=== PATIENT | female | born 1960 | race Caucasian/White ===

== ENCOUNTER 2017-09-07 09:54 | Emergency (ER) | payer OTHER ==
[~2017-09-07] VITALS: Ht 170.2 cm; Wt 142.0 kg
--- NOTE | ~2017-09-07 | EKG ---
[address] [address] ELECTROCARDIOGRAM REPORT Name: UMER HERNÁNDEZ Room #: [facility]#: [id number] Admission: 09/07/17 Attend Phys: Discharge: 09/07/17 Date of : 56 Report #: [id number] THIS REPORT FOR: //name// [facility] ED Test Date: 2017-09-07 Test Time: 10:30:45 Pat Name: UMER HERNÁNDEZ Department: Room: Gender: F Stem Threshing Machine Operator: Mare ANAYA RN : 1960 Requested By: Amelie Salinas Order Number: [id number] MD: Enmanuel Jules Measurements Intervals [place] Rate: 47 P: 2 DC: 175 QRS: 86 QRSD: 97 T: 61 QT: 437 QTc: 387 Interpretive Statements Sinus bradycardia Low voltage, extremity and precordial leads Baseline wander in lead(s) V4 No previous ECG available for comparison Electronically Signed On 09-08-2017 8:38:15 BOAT WORKER by Enmanuel Jules [email or web address] <ELECTRONICALLY SIGNED> By: Enmanuel Jules MD 09/08/17 0838 Enmanuel Jules MD /OLYA
[~2017-09-07 09:54] MED LIST: CENTRUM SILVER1 EAC3 PO; COLACE100 MG PO; FISH OIL 1,0001 EAC8 PO; IBUPROFEN 600600 M1 PO; LEVAQUIN 750 M750 MG PO; NOHOMEMEDICATIONS; OXYCODONE HCL 55 MG PO; SENNA PO
[2017-09-07 10:27] LABS: URINE BILIRUBIN NEGATIVE (Negative); URINE BLOOD NEGATIVE (Negative); URINE CLARITY CLEAR; URINE COLOR YELLOW; URINE GLUCOSE-RANDOM* TRACE (Negative); URINE KETONES NEGATIVE (Negative); URINE NITRITE-REFLEX NEGATIVE (Negative); URINE PROTEIN (DIPSTICK) NEGATIVE (Negative); URINE SPECIFIC GRAVITY >= 1.030 (1.005-1.035); URINE UROBILINOGEN 0.2 E.U./dl (0.2-1.0)
[2017-09-07 10:29] LABS: URINE LEUKOCYTES-REFLEX TRACE (Negative)
[2017-09-07 10:42] LABS: ABSOLUTE NEUTROPHILS 4.2 thou/uL (1.4-8.2); BASOPHILS 1.2 % (0.0-2.0); HEMATOCRIT 47.8 % (37.0-47.0); HEMOGLOBIN 16.2 gm/dL (12.0-15.0); LYMPHOCYTES 39.1 % (24.0-44.0); MCH 31.6 pg (26.0-34.0); MONOCYTES 6.9 % (1.0-8.0); POLYS 49.8 % (36.0-66.0); RBC 5.13 mil/uL (4.20-5.00); RDW 13.2 % (10.5-14.5); WBC 8.4 thou/uL (4.0-11.0)
[2017-09-07] MEDS ORDERED: TRULICITY0.75 MG/0. SUBQ (10:50)
[2017-09-07 10:51] LABS: CALCIUM 9.9 mg/dL (8.5-10.1); POTASSIUM 4.2 mmol/L (3.5-5.1)
[2017-09-07 10:57] LABS: ALBUMIN 3.6 g/dL (3.4-5.0); DIRECT BILIRUBIN 0.1 mg/dL (<0.1-0.3); TOTAL BILIRUBIN 0.3 mg/dL (<0.1-1.0); TOTAL PROTEIN 7.8 g/dL (6.4-8.2)
[2017-09-07 11:24] LABS: PLATELET COUNT 245 thou/uL (150-400); PLATELET ESTIMATE NORMAL
[2017-09-07 13:38] LABS: CASTS None Seen /LPF (None Seen); SQUAMOUS 0-3 Few /LPF (0-3); URINE RBC None Seen /HPF (0-2); URINE WBC 0-5 Rare /HPF (0-5)
[2017-09-07] MEDS ORDERED: KEFLEX500 M1 PO (14:07)
[2017-09-07 14:43] VITALS: BP 159/78
== END 2017-09-07 14:44 | disposition home or self-care (01) ==
LOC: ER 09:54
PROVIDERS: Emergency Medicine
DX: N39.0 Urinary tract infection, site not specified (principal)

== ENCOUNTER 2017-09-10 14:12 | Emergency (ER) | payer OTHER ==
[~2017-09-10] VITALS: Ht 170.2 cm; Wt 142.0 kg
[~2017-09-10 14:12] MED LIST changes: +KEFLEX500 M1 PO; +TRULICITY0.75 MG/0. SUBQ
[2017-09-10] MEDS ORDERED: CYCLOBENZAPRINE5 MG PO (15:00)
[2017-09-10] MEDS ORDERED: HYDROCODONE-AP1 EAC6 PO (15:00)
[2017-09-10] MEDS ORDERED: PREDNISONE 20 M20 MG PO (15:00)
[2017-09-10 15:39] VITALS: BP 123/55
== END 2017-09-10 15:10 | disposition home or self-care (01) ==
LOC: ER 14:12
DX: M54.32 Sciatica, left side (principal); Z90.49 Acquired absence of other specified parts of digestive tract

== ENCOUNTER 2017-09-15 18:08 | Inpatient (IN) | payer OTHER ==
[~2017-09-15] VITALS: Ht 170.2 cm; Wt 142.9 kg
--- NOTE | ~2017-09-15 | EKG ---
[address] [place] [address] ELECTROCARDIOGRAM REPORT Name: UMER HERNÁNDEZ Room #: 434-P ADM IN M.R.#: [id number] Admission: 09/15/17 Attend Phys: Adriano Coel MD Discharge: Date of : 56 Report #: [id number] THIS REPORT FOR: //name// [facility] Test Date: 2017-09-16 Test Time: 06:52:08 Pat Name: UMER HERNÁNDEZ Department: Room: 434 P Gender: F Foil Wrapper: PORFIRIO : 1960 Requested By: Shayy De La Rosa Order Number: [id number] MD: Julito Staples Measurements Intervals [place] Rate: 42 P: 50 [place]: 164 QRS: 106 QRSD: 100 T: 27 QT: 494 QTc: 413 Interpretive Statements Sinus bradycardia Left posterior fascicular block Low voltage, extremity and precordial leads Poor R wave progression Compared to ECG 09/07/2017 10:30:45 No significant change was found Electronically Signed On 09-16-2017 8:27:15 NON ACOUSTIC OPERATOR by Julito Staples [email or web address] <ELECTRONICALLY SIGNED> By: Julito Staples MD, [facility] 09/16/17 0827 [id number] Julito Staples MD, [facility] /EPI
[~2017-09-15 18:08] MED LIST changes: +CYCLOBENZAPRINE5 MG PO; +HYDROCODONE-AP1 EAC6 PO; +PREDNISONE 20 M20 MG PO
[2017-09-15 19:25] LABS: ABSOLUTE NEUTROPHILS 9.7 thou/uL (1.4-8.2); BASOPHILS 0.3 % (0.0-2.0); EOSINOPHILS 0.2 % (0.0-3.0); HEMATOCRIT 46.2 % (37.0-47.0); HEMOGLOBIN 15.6 gm/dL (12.0-15.0); LYMPHOCYTES 16.2 % (24.0-44.0); MCH 31.2 pg (26.0-34.0); MCHC 33.8 g/dL (28.0-37.0); MCV 92.4 fL (80.0-100.0); MONOCYTES 5.4 % (1.0-8.0); PLATELET COUNT 233 thou/uL (150-400); POLYS 77.9 % (36.0-66.0); RDW 13.6 % (10.5-14.5); WBC 12.4 thou/uL (4.0-11.0)
[2017-09-15 19:28] LABS: CALCIUM 9.3 mg/dL (8.5-10.1); POTASSIUM 4.5 mmol/L (3.5-5.1)
[2017-09-15 19:56] LABS: URINE BILIRUBIN NEGATIVE (Negative); URINE BLOOD NEGATIVE (Negative); URINE CLARITY CLEAR; URINE COLOR YELLOW; URINE GLUCOSE-RANDOM* NEGATIVE (Negative); URINE KETONES NEGATIVE (Negative); URINE LEUKOCYTES-REFLEX TRACE (Negative); URINE NITRITE-REFLEX NEGATIVE (Negative); URINE PROTEIN (DIPSTICK) NEGATIVE (Negative); URINE SPECIFIC GRAVITY >= 1.030 (1.005-1.035); URINE UROBILINOGEN 0.2 E.U./dl (0.2-1.0)
[2017-09-15 20:08] LABS: LARGE PLATELETS RARE
[2017-09-15 20:35] VITALS: BP 128/60
[2017-09-15 21:08] VITALS: BP 126/66
[2017-09-15 21:35] VITALS: BP 123/72
[2017-09-16 04:55] VITALS: BP 125/62
[2017-09-16 05:17] LABS: HEMATOCRIT 44.4 % (37.0-47.0); HEMOGLOBIN 14.8 gm/dL (12.0-15.0); MCH 31.3 pg (26.0-34.0); MCHC 33.3 g/dL (28.0-37.0); MCV 94.1 fL (80.0-100.0); RBC 4.72 mil/uL (4.20-5.00); RDW 13.6 % (10.5-14.5); WBC 10.4 thou/uL (4.0-11.0)
[2017-09-16 05:20] LABS: CALCIUM 8.7 mg/dL (8.5-10.1); CREATININE 0.9 mg/dL (0.6-1.0); POTASSIUM 4.2 mmol/L (3.5-5.1)
[2017-09-16 07:18] VITALS: BP 115/60
[2017-09-16 15:38] VITALS: BP 122/53
[2017-09-16 19:25] VITALS: BP 154/55
[2017-09-17 04:44] VITALS: BP 132/64
[2017-09-17 07:05] VITALS: BP 148/82
[2017-09-17] MEDS ORDERED: HYDROCODONE-AP1 EAC6 PO (09:45)
[2017-09-17] MEDS ORDERED: NAPROXEN250 MG PO (09:45)
[2017-09-17 10:23] VITALS: BP 148/82
== END 2017-09-17 11:29 | disposition home or self-care (01) | DRG 552 ==
LOC: ER 18:08 → 4S 20:17 → EROBS 20:17 → 4S 21:07 → ENTRNSPT 09-17 11:17 → EDTRNSPTSTS 09-17 11:20 → 4S 09-17 11:29
PROVIDERS: Emergency Medicine; Nurse Practitioner Family
DX: M54.32 Sciatica, left side (principal); Z68.42 Body mass index [BMI] 45.0-49.9, adult; G47.33 Obstructive sleep apnea (adult) (pediatric); D72.829 Elevated white blood cell count, unspecified; E66.9 Obesity, unspecified; R00.1 Bradycardia, unspecified; Z77.22 Contact with and (suspected) exposure to environmental tobacco smoke (acute) (chronic); Z90.49 Acquired absence of other specified parts of digestive tract; Z87.440 Personal history of urinary (tract) infections; Z79.899 Other long term (current) drug therapy
CPT/HCPCS: 10195

== ENCOUNTER 2019-02-02 15:08 | Emergency (ER) | payer OTHER ==
[~2019-02-02] VITALS: Ht 170.2 cm; Wt 142.9 kg
[~2019-02-02 15:08] MED LIST changes: +NAPROXEN250 MG PO
[2019-02-02 16:12] LABS: ABSOLUTE NEUTROPHILS 5.4 thou/uL (1.4-8.2); BASOPHILS 0.8 % (0.0-2.0); EOSINOPHILS 1.5 % (0.0-3.0); HEMOGLOBIN 16.2 gm/dL (12.0-15.0); MCH 31.1 pg (26.0-34.0); MCHC 33.7 g/dL (28.0-37.0); MCV 92.2 fL (80.0-100.0); MONOCYTES 6.8 % (1.0-8.0); PLATELET COUNT 220 thou/uL (150-400); POLYS 65.9 % (36.0-66.0); RDW 13.2 % (10.5-14.5); WBC 8.2 thou/uL (4.0-11.0)
[2019-02-02 16:19] LABS: CALCIUM 9.6 mg/dL (8.5-10.1); CREATININE 0.9 mg/dL (0.6-1.0); POTASSIUM 3.9 mmol/L (3.5-5.1)
[2019-02-02 16:26] LABS: ALBUMIN 3.4 g/dL (3.4-5.0); TOTAL BILIRUBIN 3.2 mg/dL (<0.1-1.0)
[2019-02-02 17:46] LABS: URINE BILIRUBIN 3+ (Negative); URINE BLOOD 3+ (Negative); URINE CLARITY CLEAR; URINE COLOR ORANGE; URINE GLUCOSE-RANDOM* 1+ (Negative); URINE KETONES NEGATIVE (Negative); URINE LEUKOCYTES-REFLEX TRACE (Negative); URINE PROTEIN (DIPSTICK) TRACE (Negative); URINE SPECIFIC GRAVITY >= 1.030 (1.005-1.035)
[2019-02-02 17:51] LABS: ICTOTEST (BILI CONFIRMATORY) Positive (Negative); URINE NITRITE-REFLEX POSITIVE (Negative)
[2019-02-02 17:58] LABS: BACTERIA-REFLEX 1-9 Few /HPF (None Seen); CALCIUM OXALATE 4-10 Moderate /LPF (None Seen); CASTS None Seen /LPF (None Seen); SQUAMOUS 0-3 Few /LPF (0-3); URINE RBC 3-10 Few /HPF (0-2); URINE WBC-REFLEX 0-5 Rare /HPF (0-5)
[2019-02-02] MEDS ORDERED: FLOMAX0.4 MG PO (18:40)
[2019-02-02] MEDS ORDERED: NORCO 10-325 T1 EACH PO (18:40)
[2019-02-02 19:19] VITALS: BP 174/83
== END 2019-02-02 23:49 | disposition home or self-care (01) ==
LOC: ER 15:08
PROVIDERS: Physician Assistant
DX: N20.1 Calculus of ureter (principal); G47.33 Obstructive sleep apnea (adult) (pediatric); E66.9 Obesity, unspecified; Z68.42 Body mass index [BMI] 45.0-49.9, adult; Z90.49 Acquired absence of other specified parts of digestive tract; Z98.890 Other specified postprocedural states; Z87.440 Personal history of urinary (tract) infections

== ENCOUNTER 2019-02-19 00:27 | Inpatient (IN) | payer OTHER ==
[~2019-02-19] VITALS: Ht 170.2 cm; Wt 142.9 kg
[~2019-02-19 00:27] MED LIST changes: +FLOMAX0.4 MG PO; +NORCO 10-325 T1 EACH PO
[2019-02-19 00:29] VITALS: BP 189/61
[2019-02-19 00:53] LABS: ABSOLUTE NEUTROPHILS 12.7 thou/uL (1.4-8.2); BASOPHILS 0.2 % (0.0-2.0); EOSINOPHILS 0.7 % (0.0-3.0); HEMATOCRIT 48.7 % (37.0-47.0); HEMOGLOBIN 16.1 gm/dL (12.0-15.0); LYMPHOCYTES 10.8 % (24.0-44.0); MCV 94.2 fL (80.0-100.0); MONOCYTES 3.7 % (1.0-8.0); PLATELET COUNT 196 thou/uL (150-400); POLYS 84.6 % (36.0-66.0); RBC 5.18 mil/uL (4.20-5.00); RDW 13.7 % (10.5-14.5); WBC 16.8 thou/uL (4.0-11.0)
[2019-02-19] MEDS ORDERED: AMBIEN 5 MG TABL5 M1 PO (00:55)
[2019-02-19] MEDS ORDERED: COLACE100 MG PO (00:56)
[2019-02-19] MEDS ORDERED: PHENTERMINE H37.5 MG PO (00:57)
[2019-02-19] MEDS ORDERED: LOVASTATIN 20 M20 MG PO (00:58)
[2019-02-19] MEDS ORDERED: INVOKANA300 MG PO (00:58)
[2019-02-19] MEDS ORDERED: NUVIGIL250 MG PO (00:59)
[2019-02-19 01:05] LABS: CALCIUM 9.1 mg/dL (8.5-10.1); POTASSIUM 4.2 mmol/L (3.5-5.1)
[2019-02-19 01:11] LABS: ALBUMIN 3.5 g/dL (3.4-5.0); TOTAL BILIRUBIN 4.6 mg/dL (<0.1-1.0); TOTAL PROTEIN 8.1 g/dL (6.4-8.2)
[2019-02-19 01:44] LABS: URINE BILIRUBIN 1+ (Negative); URINE BLOOD NEGATIVE (Negative); URINE CLARITY SL CLOUDY; URINE COLOR YELLOW; URINE GLUCOSE-RANDOM* 3+ (Negative); URINE KETONES NEGATIVE (Negative); URINE LEUKOCYTES-REFLEX NEGATIVE (Negative); URINE NITRITE-REFLEX NEGATIVE (Negative); URINE PROTEIN (DIPSTICK) NEGATIVE (Negative); URINE UROBILINOGEN 0.2 E.U./dl (0.2-1.0)
[2019-02-19 05:41] VITALS: BP 115/44
[2019-02-19 05:42] VITALS: BP 115/44
--- NOTE | 2019-02-19 06:18 | NUR ---
JOHNATHAN ZUNIGA FROM ED 0600. CONSENTS SIGNED. VITAL SIGNS TAKEN, ADMISSION EDUCATION PROVIDED. RT CONTACTED TO SET UP HOME CPAP. FLUIDS RUINNING, ADMISSION TO BE COMPLETED BY AM STAFF. WILL CONTINUE POC.
[2019-02-19 06:20] VITALS: BP 144/43
--- NOTE | 2019-02-19 09:19 | NUR ---
PATIENT CARE WAS ASSUMED AT 0715.PATIENT IS ALERT AND ORIETNED X4.PATIENT HAS NO COMPLAINS OF PAIN AT THIS TIME.IV IS INFUSING FLUIDS.PT HAS BIPAP IN PLACE.PT IS NOT ON FALL PRECAUTIONS.CALL LIGHT,PHONE, AND PERSONAL BELONGINGS ARE WITHIN REACH.
--- NOTE | 2019-02-19 14:28 | NUR ---
ASSESSMENT-PT LIVES AT HOME WITH HER . PRIOR TO COMING IN SHE WAS INDEPENDENT OF ADLS AND AMBULATION. PT WAS WORKING AND DRIVING PRIOR. DISCUSSED THIS AM THAT WE WOULD BE WORKING ON TRYING TO TRANSFER HER TO DUE TO HER HAVING HER ORIGINAL PROCEDURE THERE AND DRS DESIRE TO HAVE HER TRANSFERRED. S/W ALFREDO SENIOR COMMERCIAL LOAN OFFICER AND HE SAYS THAT THE MEDICAL DRS ARE AT CAPACITY NOW AND THEY ARE ONLY ACCEPTING URGENT TRANSFERS OR PT'S THAT CAN COME FROM PROCEDURES AND RETURN BACK. DISCUSSED WITH CASE MGT DIRECTOR AND DR KING. DR KING DESIRES A DR TO CALL. Keyshawn/W ALFREDO AGAIN AND EXPLAINED THIS TO HIM AND ALFREDO SAYS HE WILL CALL DR KING. RECEIVED A CALL TO FAX FACE SHEET, H&P, CONSULTS, LABS AND IMAGING STUDIES TO [phone] AND THIS WAS DONE. ALSO CALLED RADIOLOGY AND ASKED THEM TO CLOUD OVER ALL RADIOLOGY REPORTS FROM THIS YEAR TO .
[2019-02-19 15:58] VITALS: BP 116/58
--- NOTE | 2019-02-19 16:51 | NUR ---
received word back from keesha at and from dr víctor moralez is willing to do procedure on pt byt t this time cannot accept in transfer. PT IS TO BE NPO AFTER MN, KEEP IV ABX & FLUIDS INFUSING AND BE AT GI LAB AT 1430 TOMORROW FOR 1600 CASE. PT AND RN AWARE OF THE ABOVE ALSO.
[2019-02-19 19:56] VITALS: BP 109/52
--- NOTE | 2019-02-20 03:16 | NUR ---
PATIENT ALERT AND ORIENTED X4. UP AD LUCITA. DENIES PAIN. WEARS BIPAP AT HS. SLEPT MOST OF NIGHT.
[2019-02-20 05:28] VITALS: BP 128/62
[2019-02-20 06:04] LABS: BASOPHILS 1.4 % (0.0-2.0); EOSINOPHILS 5.5 % (0.0-3.0); HEMATOCRIT 43.4 % (37.0-47.0); HEMOGLOBIN 14.7 gm/dL (12.0-15.0); LYMPHOCYTES 35.9 % (24.0-44.0); MCH 31.6 pg (26.0-34.0); MCHC 33.8 g/dL (28.0-37.0); MCV 93.4 fL (80.0-100.0); MONOCYTES 6.7 % (1.0-8.0); PLATELET COUNT 193 thou/uL (150-400); POLYS 50.5 % (36.0-66.0); RBC 4.65 mil/uL (4.20-5.00); RDW 13.7 % (10.5-14.5); WBC 5.9 thou/uL (4.0-11.0)
[2019-02-20 06:21] LABS: ALBUMIN 2.9 g/dL (3.4-5.0); CALCIUM 9.1 mg/dL (8.5-10.1); CREATININE 1.1 mg/dL (0.6-1.0); MAGNESIUM 2.1 mg/dL (1.8-2.4); POTASSIUM 4.2 mmol/L (3.5-5.1); TOTAL BILIRUBIN 1.8 mg/dL (<0.1-1.0); TOTAL PROTEIN 7.1 g/dL (6.4-8.2)
[2019-02-20 07:25] VITALS: BP 141/58
--- NOTE | 2019-02-20 10:43 | NUR ---
PATIENT CARE WAS ASSUMED AT 0715.PATIENT IS ALERT AND ORIENTED X4.IV IS INFUSING FLUIDS.PATIENT HAS NO COMPLAINS OF PAIN AT THIS TIME.PT IS ABLE TO AMBULATE ON HER OWN. NO FALL RISK.HEART RATE HAS BEEN RUNNING LOW.LOW 40'S AND MID 40'S.DOCTOR WAS NOTIFIED.STATED HE WILL MONITOR PATIENT CLOSELY.PT IS NOT SYMPTOMATIC,PT STATES SHE FEELS GOOD AND IS SITTING UP IN CHAIR.PT IS STILL NPO SINCE MIDNIGHT, AND IS CURRENTLY WAITING FOR TRANSFER TO [facility].
--- NOTE | 2019-02-20 13:45 | NUR ---
TRANSPORTATION PICKED UP PATIENT TO GO TO [facility] FOR PROCEDURE.PATIENT VALADEZ IV INTACT.TRANSPORTATION HAS PAPERWORK AND PATIENT WILL BE TRAVELING VIA W/C VAN.PATIENT HAS HER PERSONAL BELONGINGS.PATIENT WILL BE BROUGHT BACK TO [facility] TO THE 3W MED/[facility] TELEM UNIT, THIS EVENING.
--- NOTE | 2019-02-20 14:20 | NUR ---
Nutrition: Pt w/ BMI >40; wt appears stable from admit about 18 months ago. Pt currently at for procedure, [facility] unable to accept transfer. Albumin 2.9, was WNL initially. BG controlled. SSI and other meds reviewed. Pt has been NPO for her procedure this afternoon, no prior records. 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 Physician also noted pt report of working on lifestyle changes in r/t obesity. Assess at low nutrition risk at this time; RD available by consult if needed.
--- NOTE | 2019-02-20 14:27 | NUR ---
S/W ALFREDO AT AND CONFIRMED ARRANGEMENTS FOR PT TO BE AT GI LAB THERE AND DIRECTIONS GIVEN TO PT TO INFORM HER WHERE TO COME AT . PT INFORMED THAT THERE HAVE BEEN A COUPLE OF CASES ADDED ON AHEAD OF HERS BUT STILL WANTS HER AT THE SAME TIME. CHART COPY SENT WITH PT AND PT HAS ELECTED TO TAKE HER BELONGINGS WITH HER IN CASE THERE ARE COMPLICATIONS AND SHE WOULD HAVE TO STAY. ALFREDO FROM INFORMED OF THIS. ALFREDO [phone]. [facility] PT WILL PROBABLY NEED TO RETURN AROUND 8-9PM [facility].
[2019-02-20 21:07] VITALS: BP 163/74
[2019-02-21 03:34] VITALS: BP 131/96
--- NOTE | 2019-02-21 05:46 | NUR ---
PATIENT RETURNED FROM AROUND 2100 IN A W/C ACCOMPANIED BY TRANSPORTATION. PATIENT IS ALERT AND ORIENTED X4. DENIES PAIN EXCEPT FOR A SORE THROAT. UP AD LUCITA. SLEPT MOST OF NIGHT.
[2019-02-21 07:24] VITALS: BP 105/50
--- NOTE | 2019-02-21 11:06 | EKG ---
[address] [address] ELECTROCARDIOGRAM REPORT Name: UMER HERNÁNDEZ Room #: 355-P ADM IN M.R.#: [id number] ������������������ Admission: 02/19/19 ������������������ Attend Phys: Vikram Ramos MD Discharge: ������������������ Date of : 56 Report #: [id number] ����������������������������������������������������������������� [id number] THIS REPORT FOR: //name// [facility] Test Date: 2019-02-20 Test Time: 12:02:26 Pat Name: UMER HERNÁNDEZ Department: Room: [facility] Gender: F Senior Sales Representative: Geri DIALLO : 1960 Requested By: Vikram Ramos Order Number: [id number] MD: Julito Staples Measurements Intervals [place] Rate: 45 P: -3 MD: 165 QRS: 88 QRSD: 98 T: 40 QT: 472 QTc: 409 Interpretive Statements Sinus bradycardia Poor R wave progression Compared to ECG 09/16/2017 06:52:08 No significant change was found Electronically Signed On 02-21-2019 11:06:27 CDT by Julito Staples [email or web address] ��������������������������������������������� <ELECTRONICALLY SIGNED> ���������������������������������������� By: Julito Staples MD, [facility] ��������������������������������������������� 02/21/19 1106 1202 120 Julito Staples MD, [facility] /EPI
[2019-02-21 12:08] LABS: HEMATOCRIT 45.1 % (37.0-47.0); HEMOGLOBIN 15.5 gm/dL (12.0-15.0); MCH 31.7 pg (26.0-34.0); MCHC 34.3 g/dL (28.0-37.0); MCV 92.3 fL (80.0-100.0); RBC 4.88 mil/uL (4.20-5.00); RDW 13.6 % (10.5-14.5); WBC 8.6 thou/uL (4.0-11.0)
[2019-02-21 12:20] LABS: ALBUMIN 3.2 g/dL (3.4-5.0); CALCIUM 9.3 mg/dL (8.5-10.1); CREATININE 1.1 mg/dL (0.6-1.0); POTASSIUM 3.9 mmol/L (3.5-5.1); TOTAL BILIRUBIN 0.7 mg/dL (<0.1-1.0); TOTAL PROTEIN 7.8 g/dL (6.4-8.2)
--- NOTE | 2019-02-21 16:56 | NUR ---
ASSUMED PATIENT CARE AT 0700. A/O X4 UP AD LUCITA. DENIES PAIN, NO N/V. PROGRESSING TOWARDS POC GOLAS.
[2019-02-21 19:05] VITALS: BP 117/54
[2019-02-22 03:07] VITALS: BP 131/63
[2019-02-22 06:01] LABS: ABSOLUTE NEUTROPHILS 3.4 thou/uL (1.4-8.2); BASOPHILS 1.3 % (0.0-2.0); HEMOGLOBIN 14.5 gm/dL (12.0-15.0); MCH 31.3 pg (26.0-34.0); MCHC 33.7 g/dL (28.0-37.0); MCV 92.8 fL (80.0-100.0); MONOCYTES 6.4 % (1.0-8.0); PLATELET COUNT 182 thou/uL (150-400); POLYS 51.3 % (36.0-66.0); RBC 4.63 mil/uL (4.20-5.00); RDW 13.6 % (10.5-14.5); WBC 6.6 thou/uL (4.0-11.0)
--- NOTE | 2019-02-22 06:42 | NUR ---
SLEPT PART OF SHIFT. UP AD LUCITA IN ROOM WITHOUT COMPLAINTS OF PAIN. MAINTAIN SAFE ENVIRONMENT. WORKING ON GOALS AND PLAN OF CARE FOR NOC. PROGRESSING SLOWLY TOWARDS DISCHARGE GOALS. LAB MISSED LAB DRAW X2 AND PATIENT UPSET. SECOND LAB PERSON CAME AND GOT BLOOD. PATIENT RESTING WITH CPAP ON. CONTINUE TO ASSES.
[2019-02-22 08:00] VITALS: BP 127/64
[2019-02-22 16:07] VITALS: BP 157/68
--- NOTE | 2019-02-22 17:40 | NUR ---
ASSUMED PATIENT CARE AT 0700. NO PAIN, NO N/V. VSS. PROGRESSING TOWARDS POC GOALS.
[2019-02-22 19:49] VITALS: BP 145/64
[2019-02-23 04:00] VITALS: BP 120/55
[2019-02-23 06:00] LABS: ALBUMIN 2.7 g/dL (3.4-5.0); CALCIUM 9.2 mg/dL (8.5-10.1); POTASSIUM 4.1 mmol/L (3.5-5.1); TOTAL BILIRUBIN 0.6 mg/dL (<0.1-1.0); TOTAL PROTEIN 6.3 g/dL (6.4-8.2)
[2019-02-23 07:36] VITALS: BP 148/82
--- NOTE | 2019-02-23 07:36 | NUR ---
Pt. has slept well during the night with her BIPAP on. Denies any pain or discomfort. Up ad vikas in room with steady gait. Afebrile. Making progress towards care plan goals.
--- NOTE | 2019-02-23 09:23 | NUR ---
ORDERS RECEIVED FOR EVAL AND TREAT. SPOKE WITH Pt WHO DENIES ANY ISSUES WITH STRENGTH OR MOBILITY. HAS WALKED THE HALLS ON HER OWN 6 TIMES ALREADY. Pt DECLINING FORMAL P.T. EVAL
[2019-02-23] MEDS ORDERED: PEPCID20 MG PO (11:54)
[2019-02-23] MEDS ORDERED: LEVAQUIN 500 M500 M2 PO (11:54)
[2019-02-23] MEDS ORDERED: FLAGYL500 M1 PO (11:54)
[2019-02-23 12:26] VITALS: BP 148/82
--- NOTE | 2019-02-23 12:41 | NUR ---
DISCHARGE NOTE: Received consult. Pt returned from [facility] 02/20 after GI procedure to 3W. Pt was on 4E. SW discussed case with attending physician. Pt is medically stable for discharge home today. Pt will follow up with GI at [facility]. No SW needs identified at this time, but is available to assist should needs arise.
[2019-02-23 13:20] VITALS: BP 148/82
[2019-02-23 14:43] VITALS: BP 148/82
--- NOTE | 2019-02-23 14:44 | NUR ---
Patient discharged from unit at 1443 in wheelchair by nursing staff. All belongings with patient. Discharge education and paperwork given, all questions answered. New prescriptions with patient. IV was discontinued and residential monitor taken off.
== END 2019-02-23 14:48 | disposition home or self-care (01) | DRG 919 ==
LOC: ER 00:27 → 3W 05:36 → 4E 05:36 → EROBS 05:36 → 4E 05:43 → 3W 02-20 21:00
PROVIDERS: Emergency Medicine; Nurse Practitioner; ADMIT Internal Medicine
PROC: 5A09357 Assistance with Respiratory Ventilation, Less than 24 Consecutive Hours, Continuous Positive Airway Pressure (ICD-10-PCS; principal; 2019-02-19)
DX: T85.590A Other mechanical complication of bile duct prosthesis, initial encounter (principal); K83.1 Obstruction of bile duct; E43 Unspecified severe protein-calorie malnutrition; K83.09 Other cholangitis; Z68.42 Body mass index [BMI] 45.0-49.9, adult; G47.33 Obstructive sleep apnea (adult) (pediatric); E66.01 Morbid (severe) obesity due to excess calories; R74.0 Nonspecific elevation of levels of transaminase and lactic acid dehydrogenase [LDH]; K75.9 Inflammatory liver disease, unspecified; E78.5 Hyperlipidemia, unspecified; E11.9 Type 2 diabetes mellitus without complications; Y83.8 Other surgical procedures as the cause of abnormal reaction of the patient, or of later complication, without mention of misadventure at the time of the procedure; Z87.440 Personal history of urinary (tract) infections; Z90.49 Acquired absence of other specified parts of digestive tract; Z79.899 Other long term (current) drug therapy; Y92.89 Other specified places as the place of occurrence of the external cause
CPT/HCPCS: 10084; 10779; 10879

== ENCOUNTER 2019-07-13 19:20 | Emergency (ER) | payer OTHER ==
[~2019-07-13] VITALS: Ht 170.2 cm; Wt 142.0 kg
[~2019-07-13 19:20] MED LIST changes: +AMBIEN 5 MG TABL5 M1 PO; +AUGMENTIN 875-1 EACH PO; +CRESTOR20 MG PO; +FLAGYL500 M1 PO; +HYDROCODON-ACE1 EAC8 PO; +INVOKANA300 MG PO; +LEVAQUIN 500 M500 M2 PO; +LOVASTATIN 20 M20 MG PO; +NUVIGIL250 MG PO; +PEPCID20 MG PO; +PHENTERMINE H37.5 MG PO
[2019-07-13 19:49] LABS: ABSOLUTE NEUTROPHILS 12.8 thou/uL (1.4-8.2); BASOPHILS 0.8 % (0.0-2.0); EOSINOPHILS 0.7 % (0.0-3.0); HEMATOCRIT 49.4 % (37.0-47.0); HEMOGLOBIN 16.3 gm/dL (12.0-15.0); LYMPHOCYTES 9.6 % (24.0-44.0); MCH 30.8 pg (26.0-34.0); MCHC 32.9 g/dL (28.0-37.0); MCV 93.7 fL (80.0-100.0); MONOCYTES 3.5 % (1.0-8.0); PLATELET COUNT 270 thou/uL (150-400); POLYS 85.4 % (36.0-66.0); RBC 5.27 mil/uL (4.20-5.00); RDW 13.7 % (10.5-14.5); WBC 14.9 thou/uL (4.0-11.0)
[2019-07-13 19:59] LABS: CALCIUM 10.1 mg/dL (8.5-10.1); CREATININE 1.2 mg/dL (0.6-1.0); POTASSIUM 4.3 mmol/L (3.5-5.1)
[2019-07-13 20:05] LABS: TOTAL BILIRUBIN 0.5 mg/dL (<0.1-1.0); TOTAL PROTEIN 8.9 g/dL (6.4-8.2)
[2019-07-13 20:34] LABS: URINE BILIRUBIN NEGATIVE (Negative); URINE BLOOD TRACE (Negative); URINE CLARITY CLEAR; URINE COLOR YELLOW; URINE GLUCOSE-RANDOM* 2+ (Negative); URINE KETONES NEGATIVE (Negative); URINE LEUKOCYTES-REFLEX NEGATIVE (Negative); URINE NITRITE-REFLEX NEGATIVE (Negative); URINE PROTEIN (DIPSTICK) NEGATIVE (Negative); URINE SPECIFIC GRAVITY 1.025 (1.005-1.035); URINE UROBILINOGEN 0.2 E.U./dl (0.2-1.0)
[2019-07-13] MEDS ORDERED: ONDANSETRON HCL4 M2 PO (21:31)
[2019-07-13 21:55] VITALS: BP 140/68
== END 2019-07-13 21:58 | disposition home or self-care (01) ==
LOC: ER 19:20
PROVIDERS: Physician Assistant
DX: R10.84 Generalized abdominal pain (principal); R11.2 Nausea with vomiting, unspecified; G47.33 Obstructive sleep apnea (adult) (pediatric); E66.9 Obesity, unspecified; E78.5 Hyperlipidemia, unspecified; Z79.899 Other long term (current) drug therapy; Z90.49 Acquired absence of other specified parts of digestive tract

== ENCOUNTER 2020-02-19 20:52 | Emergency (ER) | payer OTHER ==
[~2020-02-19] VITALS: Ht 170.2 cm; Wt 150.1 kg
[~2020-02-19 20:52] MED LIST changes: +ONDANSETRON HCL4 M2 PO
[2020-02-19] MEDS ORDERED: PREGABALIN75 MG PO (21:00)
[2020-02-19] MEDS ORDERED: GABAPENTIN 100100 MG PO (21:00)
[2020-02-19] MEDS ORDERED: MOBIC15 MG PO (22:16)
[2020-02-19 23:14] VITALS: BP 158/88
== END 2020-02-19 23:16 | disposition home or self-care (01) ==
LOC: ER 20:52
DX: H65.92 Unspecified nonsuppurative otitis media, left ear (principal); H69.92 Unspecified Eustachian tube disorder, left ear; E66.9 Obesity, unspecified; E78.5 Hyperlipidemia, unspecified; Z90.89 Acquired absence of other organs; Z90.49 Acquired absence of other specified parts of digestive tract; Z98.890 Other specified postprocedural states; Z79.899 Other long term (current) drug therapy; Z68.30 Body mass index [BMI] 30.0-30.9, adult

== ENCOUNTER → 2020-04-12 | Outpatient (CLI) | payer OTHER ==
[~2020-04-12] MED LIST changes: +GABAPENTIN 100100 MG PO; +MOBIC15 MG PO; +PREGABALIN75 MG PO
== END ==
LOC: BC 07:57
PROVIDERS: ATTEND Obstetrics & Gynecology
DX: Z12.31 Encounter for screening mammogram for malignant neoplasm of breast (principal)

== ENCOUNTER → 2020-04-22 | Outpatient (CLI) | payer OTHER | LOC: ULTRA 10:11 | PROVIDERS: ATTEND Radiology Diagnostic Radiology | DX: N63.20 Unspecified lump in the left breast, unspecified quadrant (principal) ==

== ENCOUNTER 2020-08-28 13:39 | Emergency (ER) | payer OTHER ==
[~2020-08-28] VITALS: Ht 170.2 cm; Wt 149.7 kg
[2020-08-28 14:11] LABS: URINE BILIRUBIN NEGATIVE (Negative); URINE BLOOD NEGATIVE (Negative); URINE CLARITY CLEAR; URINE COLOR YELLOW; URINE GLUCOSE-RANDOM* NEGATIVE (Negative); URINE KETONES NEGATIVE (Negative); URINE LEUKOCYTES-REFLEX NEGATIVE (Negative); URINE NITRITE-REFLEX NEGATIVE (Negative); URINE PROTEIN (DIPSTICK) NEGATIVE (Negative); URINE SPECIFIC GRAVITY >= 1.030 (1.005-1.035); URINE UROBILINOGEN 0.2 E.U./dl (0.2-1.0)
[2020-08-28 16:47] LABS: BASOPHILS 0.7 % (0.0-2.0); EOSINOPHILS 2.2 % (0.0-3.0); HEMATOCRIT 48.8 % (37.0-47.0); HEMOGLOBIN 16.2 gm/dL (12.0-15.0); LYMPHOCYTES 41.7 % (24.0-44.0); MCH 30.8 pg (26.0-34.0); MCHC 33.1 g/dL (28.0-37.0); MONOCYTES 8.4 % (1.0-8.0); RBC 5.25 mil/uL (4.20-5.00); RDW 14.4 % (10.5-14.5); WBC 6.4 thou/uL (4.0-11.0)
[2020-08-28] MEDS ORDERED: VITAMIN D310 MC2 PO (16:50)
[2020-08-28] MEDS ORDERED: FISH OIL 1,0001 EAC1 PO (16:50)
[2020-08-28 16:52] LABS: ANION GAP 9 mmol/L (7-16); BUN 15 mg/dL (7-18); CALCIUM 9.7 mg/dL (8.5-10.1); CHLORIDE 106 mmol/L (98-107); CO2 28 mmol/L (21-32); GLUCOSE 94 mg/dL (74-106); SODIUM 143 mmol/L (136-145)
[2020-08-28 16:54] LABS: POTASSIUM 4.3 mmol/L (3.5-5.1)
[2020-08-28 16:58] LABS: ALBUMIN 3.4 g/dL (3.4-5.0); DIRECT BILIRUBIN < 0.1 mg/dL (<0.1-0.2); LIPASE 208 U/L (73-393); SGOT 20 U/L (15-37); SGPT 33 U/L (14-59); TOTAL BILIRUBIN 0.4 mg/dL (0.2-1.0); TOTAL PROTEIN 7.4 g/dL (6.4-8.2)
[2020-08-28 17:19] LABS: LARGE PLATELETS FEW; PLATELET COUNT 218 thou/uL (150-400)
[2020-08-28 17:58] VITALS: BP 153/73
== END 2020-08-28 17:58 | disposition home or self-care (01) ==
LOC: ER 13:39
PROVIDERS: Nurse Practitioner
DX: U07.1 COVID-19 (principal); R19.7 Diarrhea, unspecified; R33.9 Retention of urine, unspecified; E78.5 Hyperlipidemia, unspecified; E66.9 Obesity, unspecified; Z90.89 Acquired absence of other organs; Z90.49 Acquired absence of other specified parts of digestive tract; Z68.43 Body mass index [BMI] 50.0-59.9, adult; Z79.899 Other long term (current) drug therapy

== ENCOUNTER 2020-12-06 20:58 | Emergency (ER) | payer OTHER ==
[~2020-12-06] VITALS: Ht 170.2 cm; Wt 143.8 kg
[~2020-12-06 20:58] MED LIST changes: +FISH OIL 1,0001 EAC1 PO; +VITAMIN D310 MC2 PO
[2020-12-06] MEDS ORDERED: INVOKANA300 MG PO (21:06)
[2020-12-06] MEDS ORDERED: TRULICITY3 MG/0.5 M SUBQ (21:08)
[2020-12-06 21:41] LABS: ABSOLUTE NEUTROPHILS 4.2 thou/uL (1.4-8.2); BASOPHILS 1.2 % (0.0-2.0); HEMOGLOBIN 15.8 gm/dL (12.0-15.0); LYMPHOCYTES 33.1 % (24.0-44.0); MCH 31.5 pg (26.0-34.0); MCHC 33.6 g/dL (28.0-37.0); MCV 93.8 fL (80.0-100.0); MONOCYTES 9.1 % (1.0-8.0); PLATELET COUNT 200 thou/uL (150-400); POLYS 53.6 % (36.0-66.0); RBC 5.02 mil/uL (4.20-5.00); RDW 13.9 % (10.5-14.5); WBC 7.8 thou/uL (4.0-11.0)
[2020-12-06 21:47] LABS: CALCIUM 8.8 mg/dL (8.5-10.1); CREATININE 1.1 mg/dL (0.6-1.0)
[2020-12-06 21:54] LABS: ALBUMIN 3.4 g/dL (3.4-5.0); INR 0.91; TOTAL BILIRUBIN 0.4 mg/dL (0.2-1.0); TOTAL PROTEIN 7.5 g/dL (6.4-8.2)
[2020-12-06 22:04] LABS: URINE BILIRUBIN NEGATIVE (Negative); URINE BLOOD 3+ (Negative); URINE CLARITY SL CLOUDY; URINE COLOR YELLOW; URINE GLUCOSE-RANDOM* 3+ (Negative); URINE KETONES NEGATIVE (Negative); URINE LEUKOCYTES-REFLEX NEGATIVE (Negative); URINE NITRITE-REFLEX NEGATIVE (Negative); URINE PROTEIN (DIPSTICK) NEGATIVE (Negative); URINE SPECIFIC GRAVITY >= 1.030 (1.005-1.035); URINE UROBILINOGEN 0.2 E.U./dl (0.2-1.0)
[2020-12-06 22:11] LABS: AMORPHOUS URATES Moderate /LPF (None Seen); BACTERIA-REFLEX 1-9 Few /HPF (None Seen); CASTS None Seen /LPF (None Seen); MUCUS 0-3 Light strn/LPF (None Seen); SQUAMOUS 4-10 Moderate /LPF (0-3); URINE WBC-REFLEX 0-5 Rare /HPF (0-5)
[2020-12-06 22:37] VITALS: BP 112/67
== END 2020-12-06 21:35 | disposition home or self-care (01) ==
LOC: ER 20:58
PROVIDERS: Emergency Medicine
DX: N93.8 Other specified abnormal uterine and vaginal bleeding (principal); E66.9 Obesity, unspecified; E78.5 Hyperlipidemia, unspecified; G62.9 Polyneuropathy, unspecified; Z79.899 Other long term (current) drug therapy; Z90.89 Acquired absence of other organs

== ENCOUNTER 2021-04-11 00:37 | Emergency (ER) | payer OTHER ==
[~2021-04-11] VITALS: Ht 170.2 cm; Wt 145.2 kg
[~2021-04-11 00:37] MED LIST changes: +TRULICITY3 MG/0.5 M SUBQ
[2021-04-11 02:36] LABS: ABSOLUTE NEUTROPHILS 5.4 thou/uL (1.4-8.2); BASOPHILS 1.1 % (0.0-2.0); EOSINOPHILS 3.8 % (0.0-3.0); HEMATOCRIT 46.2 % (37.0-47.0); HEMOGLOBIN 15.4 gm/dL (12.0-15.0); LYMPHOCYTES 33.5 % (24.0-44.0); MCH 31.7 pg (26.0-34.0); MCHC 33.4 g/dL (28.0-37.0); MCV 94.8 fL (80.0-100.0); MONOCYTES 6.5 % (1.0-8.0); PLATELET COUNT 213 thou/uL (150-400); POLYS 55.1 % (36.0-66.0); RBC 4.87 mil/uL (4.20-5.00); RDW 13.1 % (10.5-14.5); WBC 9.8 thou/uL (4.0-11.0)
[2021-04-11 02:51] LABS: CALCIUM 8.8 mg/dL (8.5-10.1); POTASSIUM 4.2 mmol/L (3.5-5.1)
[2021-04-11 03:03] LABS: ALBUMIN 3.3 g/dL (3.4-5.0); DIRECT BILIRUBIN 0.1 mg/dL (<0.1-0.2); TOTAL BILIRUBIN 0.3 mg/dL (0.2-1.0); TOTAL PROTEIN 7.3 g/dL (6.4-8.2)
[2021-04-11] MEDS ORDERED: MOBIC7.5 MG PO (04:26)
[2021-04-11 04:48] VITALS: BP 151/70
--- NOTE | 2021-04-11 10:38 | EKG ---
[address] [place] [address] ELECTROCARDIOGRAM REPORT Name: UMER HERNÁNDEZ Room #: [facility]#: [id number] Admission: 04/11/21 Attend Phys: Discharge: 04/11/21 Date of : 56 Report #: [id number] [facility] ED Test Date: 2021-04-11 Test Time: 00:50:41 Pat Name: UMRE HERNÁNDEZ Department: Room: Gender: F Stitch Wheeler: CHASE : 1960 Requested By: Eusebio Huynh Order Number: [id number] MD: Troy Schofield Measurements Intervals [place] Rate: 55 P: 28 PA: 166 QRS: 34 QRSD: 95 T: 85 QT: 406 QTc: 389 Interpretive Statements Sinus rhythm Low voltage, precordial leads Probable anteroseptal infarct, old Baseline wander in lead(s) V1,V4 Compared to ECG 02/20/2019 12:02:26 Low QRS voltage now present Myocardial infarct finding now present Sinus bradycardia no longer present Poor R-wave progression no longer present Electronically Signed On 04-11-2021 10:37:52 CDT by Troy Schofield [email or web address] <ELECTRONICALLY SIGNED> By: Troy Schofield MD, FAC 04/11/21 1037 0050 0050 Troy Schofield MD, [facility] /EPI
== END 2021-04-11 06:18 | disposition home or self-care (01) ==
LOC: ER 00:37
PROVIDERS: Student in an Organized Health Care Education/Training Program
DX: M25.512 Pain in left shoulder (principal); R07.89 Other chest pain; E66.9 Obesity, unspecified; E78.5 Hyperlipidemia, unspecified; Z79.899 Other long term (current) drug therapy; Z90.49 Acquired absence of other specified parts of digestive tract; Z90.89 Acquired absence of other organs; Z72.0 Tobacco use